=== PATIENT | male | born 1980 | race African-American/Black ===

== ENCOUNTER 2016-09-20 06:28 | Day surgery (SDC) | payer OTHER ==
[~2016-09-20 06:28] MED LIST: Buffered Lidocaine 1% SYR 3ML* 3 ML/SYR SYRINGE INTRADERM ONE
[2016-09-20] MEDS ORDERED: ceFAZolin 2 GM PREMIX (*) 2 GM/50 ML BAG IVPB ONE (06:40)
[2016-09-20] MEDS ORDERED: Bupivacaine 0.25% SDV* 30 ML ONE (07:37)
[2016-09-20] MEDS ORDERED: Bupivacaine 0.25% EPI 200,000* 30 ML SDV ONE (07:37)
[2016-09-20] MEDS ORDERED: Midazolam* 1 MG/ML 2 ML VIAL (2 MG) ONE (07:44)
[2016-09-20] MEDS ORDERED: fentaNYL* 50 MCG/ML 2 ML VIAL (100 MCG VIAL) ONE (07:44)
[2016-09-20] MEDS ORDERED: Dexamethasone IV* 4 MG/ML 1 ML (4 MG) ONE (08:10)
[2016-09-20] MEDS ORDERED: Propofol* 10 MG/ML 20 ML BTL IV PUSH ONE (08:10)
[2016-09-20] MEDS ORDERED: Ondansetron INJ* 2 MG/ML VIAL ONE (08:10)
[2016-09-20] MEDS ORDERED: Lidocaine 2% PF * 5 ML VIAL ONE (08:10)
[2016-09-20] MEDS ORDERED: HYDROmorphone INJ* 1 MG/ML CARPUJECT SYRINGE IV PRN (08:31)
[2016-09-20] MEDS ORDERED: Scopolamine 1.5 mg* PATCH TRANSDERM PRN (08:31)
[2016-09-20] MEDS ORDERED: Metoclopramide IV* 5 MG/ML 2 ML VIAL IV PRN (08:31)
[2016-09-20] MEDS ORDERED: EPHEDrine (Pressors)* 50 MG/ML VIAL ONE (09:27)
[2016-09-20] MEDS ORDERED: oxyCODONE/Acetamin 5/325 MG* TAB ONE (12:34)
[2016-09-20 14:17] VITALS: BP 109/64
[2016-09-23] MEDS ORDERED: Scopolamine PATCH Remove* 1 NOTE MISC PATCH OFF ONE (08:33)
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
== END 2016-09-20 13:22 ==
LOC: OREAST 06:28
PROVIDERS: ATTEND Orthopaedic Surgery
DX: S83.512A Sprain of anterior cruciate ligament of left knee, initial encounter (principal); S83.282A Other tear of lateral meniscus, current injury, left knee, initial encounter; Z72.0 Tobacco use; W19.XXXA Unspecified fall, initial encounter; Y92.9 Unspecified place or not applicable
CPT/HCPCS: 88304; A9270-GY; C1713; C1776; J0690; J1100; J2250; J2405; J2704; J3010